=== PATIENT | female | born 1975 | race Caucasian/White ===

== ENCOUNTER 2022-11-13 21:41 | Emergency (ER) | payer OTHER, SELFPAY ==
--- NOTE | ~2022-11-13 | XR_ITS ---
Left Hand Technique: PA, oblique, and lateral views were obtained. Clinical History: Third digit crush injury Findings: No acute fracture or dislocation is seen. Osseous alignment is anatomic. Joint spaces are p reserved. Soft tissues are unremarkable. Impression: Unremarkable left hand. Reviewed, dictated and finalized at location . Impression: Unremarkable left hand.
[2022-11-13 22:27] VITALS: BP 137/78; PULSE 71; RESP 17; TEMP 36.4; O2SAT 100
[2022-11-14 00:01] VITALS: BP 120/61; PULSE 68; RESP 16; O2SAT 97
--- NOTE | 2022-11-14 01:08 | ED.WOUNDLAC ---
HPI - Wound/Laceration General Chief Complaint: Wound/Laceration Stated Complaint: finger injury Time Seen by Provider: 11/14/22 00:15 History of Present Illness HPI narrative: 47-year-old female reports for evaluation of left third digit pain and laceration after she smashed her third digit in a folding chair prior to arrival. Patient reports pain to the distal aspect of her third digit. Bleeding controlled. She is unsure of her last tetanus immunization. She has not taken anything for pain. Related Data Allergies Allergy/AdvReac Type Severity Reaction Status Date / Time No Known Allergies Allergy Unknown Unverified 05/17/05 19:38 NDKA Allergy Mild Uncoded 04/25/05 19:32 Review of Systems Review of Systems: CONSTITUTIONAL: Denies fever, chills EYES: Denies visual changes, redness, or discharge. ENT: Denies rhinorrhea, congestion, sore throat, or otalgia. CARDIOVASCULAR: Denies chest pain, palpitations, or edema. RESPIRATORY: Denies cough or dyspnea. GASTROINTESTINAL: Denies abdominal pain, nausea, vomiting, or diarrhea. GENITOURINARY: Denies dysuria or hematuria. SKIN: Denies rash or itching. MUSCULOSKELETAL: Denies back pain, joint pain, or myalgia. NEUROLOGIC: Denies headache, numbness, dizziness, or weakness. PSYCHIATRIC: Denies anxiety or depression. Exam Narrative: GENERAL: Well-appearing, well-nourished, and in no acute distress. HEAD: Normocephalic, atraumatic. EYES: PERRLA and EOMI. CHEST: Clear to auscultation. No respiratory distress. No wheezes rales or rhonchi HEART: Regular rate and rhythm. No murmur heard. Normal peripheral pulses. EXTREMITIES: LUE: Tenderness to the distal third phalanx with a 0.5cm linear superficial laceration to the fat pad, and a 0.5 cm superficial laceration in the hyponychium. No direct nail involvement. No subungual hematoma appreciated. Full range of motion of phalanx. No tenderness along the flexor tendon, remaining digit, remainder of the hand. Radial pulse 2+. Sensation intact. Cap refill less than 2 SKIN: Warm, dry, no rash. See extremities NEURO: No focal deficits. Alert and oriented x3. PSYCH: Normal mood and affect. Course Vital Signs Vital signs: Vital Signs Temperature 97.5 F L 11/13/22 22:27 Pulse Rate 71 11/13/22 22:27 Respiratory Rate 17 11/13/22 22:27 Blood Pressure 137/78 11/13/22 22:27 Pulse Oximetry 100 11/13/22 22:27 Oxygen Delivery Room Air 11/13/22 22:27 Temperature 97.5 F L 11/13/22 22:27 Pulse Rate 72 11/14/22 02:56 Respiratory Rate 17 11/14/22 02:56 Blood Pressure 118/72 11/14/22 02:56 Pulse Oximetry 100 11/14/22 02:56 Oxygen Delivery Room Air 11/13/22 22:27 MDM - Wound/Laceration MDM Narrative Medical decision making narrative: 47-year-old female reports for evaluation of her left third digit after she crushed it in a folding table just prior to arrival. Exam reveals 0.5 cm linear laceration to the fat pad, and 0.5 cm superficial linear laceration to the hyponychium. No nail involvement. Bleeding controlled. Patient neurovascularly intact. Tetanus updated. X-ray obtained and reveals no acute osseous abnormality. Phalanx digitally blocked to better evaluate wound and allow for further inspection. Lac extensively irrigated with normal saline. Wound approximated with skin glue, covered with nonstick and Coban. Empiric antibiotics not provided as this appears to be a wound without excessive contamination, patient without history of diabetes or vascular insufficiency. Close follow-up with PCP advised. ED return precautions provided. Patient's vitals remained stable throughout ED visit. She is afebrile. Patient stable for discharge. Discharge Plan Discharge Clinical Impression: Laceration Injury of finger Qualifiers: Encounter type: initial encounter Laterality: left Qualified Code(s): S69.92XA - Unspecified injury of left wrist, hand and finger(s), initial encounter Patient Disposition: H
[2022-11-14] MEDS: TETANUS,DIPHTHERIA,AC PERTUSSIS ADULT (0.5 ML) BOOSTRIX IM (01:45)
[2022-11-14] MEDS: IBUPROFEN 400 MG TABLET PO (01:45)
[2022-11-14 02:56] VITALS: BP 118/72; PULSE 72; RESP 17; O2SAT 100
== END 2022-11-14 02:57 | disposition home or self-care (01) ==
PROVIDERS: Emergency Provider Physician Assistant; PCP Family Medicine
DX: S61.213A Laceration without foreign body of left middle finger without damage to nail, initial encounter (principal); Z23 Encounter for immunization; W23.0XXA Caught, crushed, jammed, or pinched between moving objects, initial encounter
CPT/HCPCS: 12001; 73130; 90471; 90715; 99283; A9270